=== PATIENT | male | born 2000 | race African-American/Black ===

== ENCOUNTER 2022-11-25 22:48 | Emergency (ER) | payer BC ==
[~2022-11-25] VITALS: Ht 172.7 cm; Wt 63.5 kg
[2022-11-25 22:58] VITALS: BP 123/79
[2022-11-25] MEDS ORDERED: TRAM50TA2 PO (23:31)
[2022-11-25] MEDS ORDERED: NAPR500T6 PO (23:31)
== END 2022-11-25 23:35 | disposition home or self-care (01) ==
LOC: ER 23:09
DX: S62.102A Fracture of unspecified carpal bone, left wrist, initial encounter for closed fracture (principal); Z79.899 Other long term (current) drug therapy; W22.8XXA Striking against or struck by other objects, initial encounter; Y93.51 Activity, roller skating (inline) and skateboarding; Y92.89 Other specified places as the place of occurrence of the external cause; Y99.8 Other external cause status